=== PATIENT | male | born 1975 | race African-American/Black ===

== ENCOUNTER → 2020-03-07 09:10 | Outpatient (BNVA) | payer BC, SELFPAY | PROVIDERS: PCP Internal Medicine; Visit Provider Internal Medicine | DX: E11.9 Type 2 diabetes mellitus without complications (principal); R03.0 Elevated blood-pressure reading, without diagnosis of hypertension; R30.0 Dysuria; K75.81 Nonalcoholic steatohepatitis (NASH) | CPT/HCPCS: 80053; 80061; 81000; 84443; 85025; G0103 ==

== ENCOUNTER → 2023-05-04 11:34 | Outpatient (BNVA) | payer BC, SELFPAY | PROVIDERS: PCP Internal Medicine; Visit Provider Family Medicine | DX: I10 Essential (primary) hypertension (principal); B35.0 Tinea barbae and tinea capitis | CPT/HCPCS: 80053; 80061; 85025 ==